=== PATIENT | male | born 1950 | race Caucasian/White ===

== ENCOUNTER 2024-04-24 08:56 | Outpatient (CLI) | payer MEDICARE, SELFPAY ==
--- NOTE | 2024-04-24 10:45 | NEURO_ITS ---
Impression: # Complains of restless leg syndrome. Non-diabetic. # Mild sensorimotor axonal neuropathy. # Normal needle/EMG exam with no neurogenic changes. # Clinical correlation recommended. Nerve Conduction Studies Anti Sensory Summary Table Stim Site NR Peak (ms) P-T Amp (?V) Site1 Site2 Delta-P (ms) Dist (cm) Venkat (m/s) Left Sup Fibular Anti Sensory (Ant Lat Mall) NO RESPONSE 14 cm NR 14 cm Ant Lat Mall 16.0 Right Sup Fibular Anti Sensory (Ant Lat Mall) NO RESPONSE 14 cm NR 14 cm Ant Lat Mall 16.0 Left Sural Anti Sensory (Lat Mall) NO RESPONSE Calf NR Calf Lat Mall 16.0 Right Sural Anti Sensory (Lat Mall) Calf 3.7 16.1 Calf Lat Mall 3.7 16.0 43 Motor Summary Table Stim Site NR Onset (ms) O-P Amp (mV) Site1 Site2 Delta-0 (ms) Dist (cm) Venkat (m/s) Left Peroneal Motor (Vastus Med) Ankle 4.6 5.4 Popit Ankle 10.6 42.0 40 Popit 15.2 4.5 Right Peroneal Motor (Vastus Med) Ankle 4.5 2.2 Popit Ankle 10.7 43.0 40 Popit 15.2 1.7 Left Tibial Motor (Abd Davis Brev) Ankle 4.9 2.2 Knee Ankle 10.4 43.0 41 Knee 15.3 2.0 Right Tibial Motor (Abd Davis Brev) Ankle 4.8 1.7 Knee Ankle 10.1 42.0 42 Knee 14.9 2.0 F Wave Studies NR F-Lat (ms) L-R F-Lat (ms) Left Peroneal (Mrkrs) (EDB) 62.23 1.09 Right Peroneal (Mrkrs) (EDB) 63.32 1.09 Left Tibial (Mrkrs) (Abd Hallucis) 62.51 1.32 Right Tibial (Mrkrs) (Abd Hallucis) 63.83 1.32 EMG Side Muscle Nerve Root Ins Act Fibs Amp Dur Recrt Comment Right AntTibialis Dp Br Fibular L4-5 Nml Nml Nml Nml Nml Right Gastroc Tibial S1-2 Nml Nml Nml Nml Nml Right Fibularis Long Sup Br Fibular L5-S1 Nml Nml Nml Nml Nml Right Flex Dig Long Tibial L5-S2 Nml Nml Nml Nml Nml Right Ext Dig Brev Dp Br Fibular L5, S1 Nml Nml Nml Nml Nml Right QuadratusFem QuadFemoris L4-5, S1 Nml Nml Nml Nml Nml Left AntTibialis Dp Br Fibular L4-5 Nml Nml Nml Nml Nml Left Gastroc Tibial S1-2 Nml Nml Nml Nml Nml Left Fibularis Long Sup Br Fibular L5-S1 Nml Nml Nml Nml Nml Left Flex Dig Long Tibial L5-S2 Nml Nml Nml Nml Nml Left Ext Dig Brev Dp Br Fibular L5, S1 Nml Nml Nml Nml Nml Left QuadratusFem QuadFemoris L4-5, S1 Nml Nml Nml Nml Nml MTDD
== END 2024-04-24 08:57 | disposition home or self-care (01) ==
LOC: ANHNEURO 08:57
PROVIDERS: PCP Family Medicine; Visit Provider Podiatrist Foot & Ankle Surgery
DX: G62.9 Polyneuropathy, unspecified (principal)
CPT/HCPCS: 95886; 95910

== ENCOUNTER 2024-05-22 08:08 | Outpatient (CLI) | payer MEDICARE, SELFPAY ==
[2024-05-22 08:52] LABS: Basophils Absolute Auto 0.1 K/mm3 (0.0-0.1); Basophils Percent Auto 0.8 % (0.2-1.2); Eosinophils Absolute Auto 0.1 K/mm3 (0-0.3); Eosinophils Percent Auto 0.8 % (0-4.4); Hematocrit 41.6 % (42.0-52.0); Hemoglobin 13.5 g/dL (14.0-18.0); Immature Granulocyte Absolute 0.03 K/mm3 (0.00-0.031); Immature Granulocyte Percent A 0.5 % (0-0.5); Lymphocytes Absolute Auto 1.11 K/mm3 (0.9-3.2); Lymphocytes Percent Auto 18.8 % (18.3-44.2); Mean Corpuscular HGB Conc 32.5 g/dl (32-36); Mean Corpuscular Hemoglobin 31.4 pg (26-34); Mean Corpuscular Volume 96.7 fl (80-100); Mean Platelet Volume 9.1 fl (7.4-10.4); Monocytes Absolute Auto 0.3 K/mm3 (0.1-0.6); Monocytes Percent Auto 5.6 % (2.6-8.5); Neutrophils Absolute Auto 4.3 K/mm3 (1.3-6.7); Neutrophils Percent Auto 73.5 % (45.5-73.1); Platelet Count Result 301 k/mm3 (150-375); White Blood Count 5.9 K/mm3 (4.5-10.0)
[2024-05-23 14:44] LABS: Homocysteine 17.3 umol/L (<11.4)
[2024-05-23 22:04] LABS: Red Blood Cell Folate 476 ng/mL RBC (>280)
[2024-05-25 12:13] LABS: Vitamin B6 7.4 ng/mL (2.1-21.7)
[2024-05-26 09:40] LABS: Vitamin B1 10 nmol/L (8-30)
[2024-05-26 15:44] LABS: Vitamin D 1,25 (OH)2 Total 40 pg/mL (18-72); Vitamin D2 1,25 (OH)2 <8 pg/mL; Vitamin D3 1,25 (OH)2 40 pg/mL
[2024-05-26 22:39] LABS: Immunofixation, Serum Normal pattern.
[2024-05-28 07:30] LABS: Methylmalonic Acid 154 nmol/L (69-390)
== END 2024-05-22 08:09 | disposition home or self-care (01) ==
PROVIDERS: PCP Family Medicine; Visit Provider Psychiatry & Neurology Neurology
DX: E55.9 Vitamin D deficiency, unspecified (principal); F80.81 Childhood onset fluency disorder; G62.89 Other specified polyneuropathies
CPT/HCPCS: 36415; 82607; 82652; 82747; 83090; 83921; 84207; 84425; 85025; 86334

== ENCOUNTER 2024-05-24 07:37 | Outpatient (CLI) | payer MEDICARE, SELFPAY ==
[2024-05-24 08:06] LABS: Glucose Fasting 102 mg/dL
[2024-05-24 10:02] LABS: Glucose 1 Hour 168 mg/dL
[2024-05-24 10:35] LABS: Glucose 2 Hour 143 mg/dL
== END 2024-05-24 07:38 | disposition home or self-care (01) ==
PROVIDERS: PCP Family Medicine; Visit Provider Psychiatry & Neurology Neurology
DX: Z13.1 Encounter for screening for diabetes mellitus (principal); F80.81 Childhood onset fluency disorder; G62.89 Other specified polyneuropathies
CPT/HCPCS: 36415; 82951

== ENCOUNTER 2025-02-03 09:27 | Outpatient (CLI) | payer MEDICARE, SELFPAY ==
--- OUTSIDE RECORDS SUMMARY | 2010-05-10 19:00 | XMS_ITS | Continuity of Care Document ---
Author Organization [facility] Address [address] [place] [address] Phone Care Team Providers Care Ship Keeper Name Role Phone [facility] Unavailable Unavail able Logan Borrego Unavailable Unavailable Procedures Procedure Date SV Poly Carb Sph +/- 7.12 To +/- 20 D No Tint Photochromatic, Polycarb 0 Medical Tax SV Poly Carb Sph +/- 7.12 To +/- 20 D No Medical Tax Eye Exam & Treatment Refraction Eye Exam & Treatment Refraction Eye Exam & Treatment Refraction SV Poly Carb Sph +/- 7.12 To +/- 20 D No Tax - Medical SV Poly Carb Sph +/- 7.12 To +/- 20 D Ma Tax - Medical No Charge Glasses Check SV Poly Carb Sph +/- 7.12 To +/- 20 D Oc Tax - Medical SV Poly Carb Sph +/- 7.12 To +/- 20 D Oc Frames Deluxe Tax - Medical Eye Exam & Treatment Refraction Advance Directives Directive Yes / No Effective Date File Name No Information Encounters Encounter Description Practice Location Reason(s) For Visit Diagnoses Date Provider Providers Copied on Encounter [facility], [address] [place] [address] [address], [place], [place], [id number], [place] tel:[phone] [facility] No Information Nov-3 0-201 0 [facility] . [address], [address], [place], [place], [id number], [place]. tel:[phone] Referring Provider: Mary Harper, [facility] [address], [place], [address]. tel:[phone] g Provider: Logan Borrego, [facility], [place], [address]. tel:[phone] [facility], [address] [place] [address] [address], [place], [place], [id number], [place] tel:[phone] [facility] No Information Nov-3 0-201 0 [facility] . [address], [address], [place], [place], [id number], [place]. tel:[phone] Referring Provider: Mary Harper, [facility] [address], [place], [address]. tel:[phone] g Provider: Logan Borrego, [address] [place], [place] [address]ate [facility], [place], [address]. tel:[phone] [facility], [address] [place] [address] [address], [place], [place], [id number], [place] tel:[phone] [facility] No Information 8-201 0 Gila Hernandez. [facility] , [address], [place], [address], [place]. tel:[phone] [facility], [address] [place] [address] [address], [place], [place], [id number], [place] tel:[phone] [facility] No Information Nov 2-200 9 Gila Hernandez. [facility] , [address], [place], [address], [place]. tel:[phone] [facility], [address] [place] [address] [address], [place], [place], [id number], [place] tel:[phone] [facility] No Information Nov-0 6-200 8 Gila Hernandez. [address] [place] [address] Dr, [address], [place], [address], [place]. tel:[phone] [facility], [address] [place] [address] [address], [place], [place], [id number], [place] tel:[phone] [facility] No Information Nov-0 6-200 8 [facility] . [address], [address], [place], [place], [address], [place]. tel:[phone] Referring Provider: Mary Harper, [address] [place] [address] [address], [place], [address]. tel:[phone] g Provider: Logan Borrego, [address] [place] [address], [place], [address]. tel:[phone] [facility], [address] [place] [address] [address], [place], [place], [id number], [place] tel:[phone] [facility] No Information May-0 3-200 8 [facility] . [address], [address], [place], [place], [id number], [place]. tel:[phone] Referring Provider: Mary Harper, [address] [place] [address] [address], [place], [address]. tel:[phone] g Provider: Allyson Ernst, [address] [facility], [place], [address]. tel:[phone] [facility], [address], [place], [place], [id number], [place] tel:[phone] [facility] No Information May-0 1-200 8 Gila Hernandez. [facility] , [address], [place], [address], [place]. tel:[phone] [facility], [address] [place] [address] [address], [place], [place], [id number], tel:[phone] [facility] [place] No Information Oct- 7 [facility] . [address] [place] [address], [address], [id number], . tel:[phone] Referring Provider: Mary Harper, [address] [place], [place] [address]ate [place] [address], [place], [place], [facility]. tel:[phone] g Provider: Logan Borrego, [address] [place] [address], [place], [facility]. tel:[phone] [facility], [address] [place] [address] [address], [place], [place], [id number], tel:[phone] [facility] No Information 7 [facility] . [address], [address], [id number], [place]. tel:[phone] Referring Provider: Mary Harper, [address] [place], [place] [address]ate [place] [address], [place], [address]. tel:[phone] g Provider: Logan Borrego, [address] [place] [address], [place], [facility]. tel:[phone] [facility], [address] [place] [address] [address], [place], [place], [id number], [place] tel:[phone] [facility] No Information 7 Gila Hernandez. [address] [place], [place] [address]ate [place] , [address], [place], [place], [facility], [place]. tel:[phone] Family History Family Member Type Diagnosis Age At Onset No Information Payers Payer name Insurance type Covered democrat ID Authoriza tion(s) No Information Social History Type Description Quantity Date Captured Comments Sex Male Smoking Status No Information Chief Complaint And Reason For Visit No Information Reason For Referral Reason For Referral No Information History Of Present Illness Encounter Date Complaint History Of Prese nt Illness No Information Functional Status Date Functional Assessmen t No Information Instructions Date Instruction Additional Infor mation No Information Assessments Type Assessment Date No Information Patient Care Teams Name Effective Dates (start - stop) Status Members No Information
--- NOTE | ~2025-02-03 | XR_ITS ---
XR knee RT min 4V 02/03/2025 09:57 Indication: Right knee pain Procedure: 4 views right knee Comparison: No prior studies for comparison. Findings: There is mild patellofemoral compartment osteoarthritis. No fracture, subluxation or dislocation. No significant joint effusion. No foreign bodies. Impression: 1: No acute bone or joint abnormality. 2: Mild patellofemoral compartment osteoarthritis. Reviewed, dictated and finalized at location O. Impression: 1: No acute bone or joint abnormality. 2: Mild patellofemoral compartment osteoarthritis.
--- NOTE | ~2025-02-03 | XR_ITS ---
EXAMINATION: XR hip BI 2V w AP pelvis DATE: 02/03/2025 09:57 INDICATION: Pain TECHNIQUE: 5 images of the hips were obtained. COMPARISON: None. FINDINGS: Mild degenerative change in both hips and the pubic symphysis. Bones appear osteopenic. There is bowel gas and stool projecting over the pelvis which limits evaluation. There are a few less than 1.0 cm calcifications projecting over the pelvis which may represent phleboliths, however, a distal ureteral stone or bladder stone or possible. No fracture. No dislocation. Subtle amorphous 1.0 cm lucency in the right lesser trochanter. Differential includes osteopenia or lytic bone lesion. A total body bone scan is recommended. IMPRESSION: 1. Subtle amorphous lucency in the right lesser trochanter. Differential includes osteopenia or lytic bone lesion. A total body bone scan or MRI with and without contrast is recommended. 2. No fracture. No dislocation. 3. Mild degenerative change in the hips. Reviewed, dictated and finalized at location Q. IMPRESSION: 1. Subtle amorphous lucency in the right lesser trochanter. Differential includ es osteopenia or lytic bone lesion. A total body bone scan or MRI with and with out contrast is recommended. 2. No fracture. No dislocation. 3. Mild degenerative change in the hips.
--- OUTSIDE RECORDS SUMMARY | 2025-02-03 10:06 | XMS_ITS | Clinical Summary ---
Author Organization [facility] Address [facility] [place] [address] Care Team Providers Care Citrus Fruit Packer Name Role Phone Unavailable Primary Care Provider Unavailabl e Allergies Active Allergy Reactions Criticality Noted Date Comments Ragweed Medications multivit-min/iron /folic acid/K (ADULTS MULTIVITAMIN ORAL) Take 1 tablet by mouth daily before breakfast Active acetaminophen ER (TYLENOL) 650 mg 8 hr tablet Take 650 mg by mouth every 8 (eight) hours as needed for pain Active Active Problems Problem Noted Date Diagnosed Date Other spondylosis with radiculopathy, 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/2018 Neoplasm of uncertain behavior of skin 3 Prostate nodule 11/03/2010 Elevated prostate specific antigen (PSA) 010 Overview (09/22/2017): Description: PSA=4.3 on 02/27/2010 Resolved Problems Problem Noted Date Diagnosed Date Resolved Date Right inguinal hernia 11/23/20202020 Overview (11/23/2020): Added automatically from request for surgery [id number] Surgical History Surgery Date Site/Laterality Comments HEMORRHOID SURGERY 06/12/1984 - 06/11/1985 ARM SURGERY 06/12/1966 - 06/11/1967 Right tumor removed HERNIA REPAIR 06/12/1999 - 06/11/2000 HERNIA REPAIR 06/12/2007 - 06/11/2008 Left inguinal COLONOSCOPY Medical History Medical History Date Comments Benign neoplasm of bone or a rticular cartilage Benign Neoplasm Of The Bone - 1966 (Added by TW Conv) Inguinal hernia Family History Medical History Relation Name Comments Heart disease Father Anesthesia problems Neg Hx Relation Name Status Comments Father Social History Tobacco Use Types Packs/Day Years Used Date Smoking Tobacco: Never Smokeless Tobacco: Never Alcohol Use Standard Drinks/Week Comments No 0 (1 standard drink = 0.6 oz pur e alcohol) AUDIT-C Answer Date Recorded Q1: How often do you have a drink containing alc ohol? Monthly or less 12/10/2020 Q2: How many drinks containi ng alcohol do you have on a typical day when you are drinking? 1 or 2 12/10/2020 Q3: How often do you have si x or more drinks on one occasion? 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 Gender Identity Not on file Sexual Orientation Not on file Occupation Industry Job Start Date Job End Date retired Not on file Not on file Not on file Obstetrics History Last Filed Vital Signs Vital Sign Reading Time Taken Comments Blood Pressure 156/78 12/28/2020 1:41 PM CDT Pulse 76 12/28/2020 1:41 PM CDT Temperature 36.3 C (97.3 F) 12/28/2020 1:41 PM CDT Respiratory Rate 19 12/10/2020 4:30 PM CDT Oxygen Saturation 97% 12/10/2020 4:20 PM CDT Inhaled Oxygen Concentration - - Weight 70.6 kg (155 lb 9.6 oz) 12/28/2020 1:41 P M CDT Height 175.3 cm (5' 9) 12/28/2020 1:41 PM CDT Body Mass Index 22.98 12/28/2020 1:41 PM CDT Plan of Treatment Not on file Medical Devices Implanted Type Area Stubber Device Identifier Shelf Expiration Date Model / Serial / Lot [employer] Dani Bard [id number] Bard Marlex 6x6in Monofilament Gold Standard Flat Sheet Groin - [id number] Implanted:Qty: 1 on 12/10/2020 by Cindy Hernandez MD at [facility] [employer] Dani [place] [id number] 07/09/2025 [id number] / / [id number] Insurance MEDICARE [facility] MEDICARE [facility] MEDICARE [facility]
== END 2025-02-03 09:28 | disposition home or self-care (01) ==
PROVIDERS: PCP Family Medicine; Visit Provider Student in an Organized Health Care Education/Training Program
DX: R93.89 Abnormal findings on diagnostic imaging of other specified body structures (principal); M17.11 Unilateral primary osteoarthritis, right knee; M16.0 Bilateral primary osteoarthritis of hip
CPT/HCPCS: 73521; 73564

== ENCOUNTER 2025-03-03 08:54 | Outpatient (CLI) | payer MEDICARE, SELFPAY ==
--- NOTE | ~2025-03-03 | NM_ITS ---
EXAMINATION: NM bone scan whole body DATE: 03/03/2025 13:29 INDICATION: Abnormal findings on pelvis radiographs TECHNIQUE: 23.8 mCi Tc-99m HDP was administered intravenously. Delayed whole- body scintigrams were obtained. COMPARISON: Radiographs dated 02/03/2025 FINDINGS: There is mild uptake at what appears to be an old fracture deformity in the proximal right humeral diaphysis. Mild likely degenerative joint centered uptake at the bilateral acromioclavicular joints, at the right patellofemoral articulation and associated with severe right-sided facet osteoarthritis L4-L5 and L5-S1. No other foci of abnormal bone uptake to suggest malignancy/metastatic disease. IMPRESSION: 1. There is mild uptake at what appears to be an old fracture deformity in the proximal right humeral diaphysis. Correlate with clinical history and consider right humerus radiographs for further evaluation. Reviewed, dictated and finalized at location A.
== END 2025-03-03 08:55 | disposition home or self-care (01) ==
PROVIDERS: PCP Family Medicine; Visit Provider Family Medicine
DX: R93.89 Abnormal findings on diagnostic imaging of other specified body structures (principal); M25.559 Pain in unspecified hip; R97.20 Elevated prostate specific antigen [PSA]
CPT/HCPCS: 78306; A9503

== ENCOUNTER 2025-03-27 00:34 | Day surgery (SDC) | payer MEDICARE, SELFPAY ==
[2025-03-19 10:43] VITALS: BMI 19.9
--- NOTE | 2025-03-19 10:52 | PC.NURSE ---
[facility] has started construction of its new state of the art ER which will open Spring 2026. With this, we anticipate parking may be a challenge for some our surgical patients and families. Parking spaces are limited but are available for all Surgical, obstetrics, and ER patients sharing this lot. If you arrive and find you are having a hard time finding a parking space, please note that we understand the challenges, please drive around the hospital and park near Hospital Entrance 1. When you enter this entrance, you can ask a volunteer to direct or take you back to the surgical waiting area to check in. We appreciate everyone?s understanding of these expected challenges while we build for your future. Report to the Outpatient Waiting Room, entrance under the green pavilion located off [address], at time _06:15am on date . Planned Procedure Time: __08:15am .? Time changes happen often and if your time is changed the preop area will call you the afternoon before. - You and your visitor will be asked to self-screen and do not enter if you have any COVID symptoms. Please call surgeon if you need to reschedule. - A mask is optional within the hospital at this time. Patients may have clear liquids (water, carbonated beverages, clear teas, apple juice) until 3 hours prior to surgery with a maximum of 20 ounces. - No food from midnight until time of surgery and no smoking, or chewing tobacco (or any form of nicotine). No chewing gum, candy or mints.(0515am) Take only the following medications with a SIP of water on the morning of surgery: ____Gabapentin and Tylenol DO NOT STOP ANY OF YOUR OTHER PRESCRIPTION MEDICATIONS PRIOR TO SURGERY EXCEPT THE FOLLOWING Hold all vitamins and supplements for 7 days per anesthesiologist. date of last dose is 03/19/25 Medications to discontinue per physician __HOLD ANY ASPIRIN or NSAIDS For 7 days prior Date to take last dose___03/19/25 Please no make-up, nail arabic, hairspray, perfume, deodorant, or body powder the day of surgery.? No jewelry (including any body piercings) or valuables the day of surgery, leave them at home.? Please take a shower or bath the night before, or the morning of, surgery with an antibacterial soap. DIAL SOAP ? Wear comfortable, loose fitting clothing.? FLEETS ENEMA am of as ordered. - Jewelry must be removed prior to entering the operating room.? Rings and piercings that are not removed may be cut off. - The hospital will not accept responsibility for valuables.? - Please leave all valuables, including medications, at home the day of surgery. If you are going home after surgery, a licensed [employer] company flatbed driver must drive you home.? - NO public transportation without another adult if you receive anesthesia. - We recommend that an adult stay with you for 24 hours following discharge. - We also recommend that you do not drive, make important decision, drink alcoholic beverages, or take any drugs that were not prescribed by your health care provider for at least 24 hours after your discharge time. Follow any additional instructions given to you from your surgeon. Telephone instructions given to __Patient and asked if any additional questions and then verbalized understanding. Patient advised to call surgeon office or pre surgery nurse liaison [phone] if any additional questions.
--- NOTE | 2025-03-24 07:24 | PM.HPGS ---
History of Present Illness History of Present Illness Consent: Risks, benefits, and alternatives have been discussed and questions answered. Patient agrees to proceed with procedure. Chief complaint: elevated psa Narrative: Samir Wang is a 74 year old male with elevated PSA: 03/26/25: Care transferred to Dr. Lopez after Dr. Lucas chcf 12/31/24: PSA: 5.0 01/30/25: 4K score: The?probability?of?having?aggressive?prostate?cancer: 4KScore?Range?%?Probability?95%?CI ?<5.0?4.1%?2.1%,??7.9% ?? 5.0?to?<10.0?9.6%?5.8%,?15.5% ? 10.0?to?<20.0?19.7%?14.8%,?25.8% ?? >?or?=??20.0? 49.4%?44.5%,?54.3% ?? >?or?=??20.0?49.4%?44.5%,?54.3% 02/15/25: mpMRI Prostate: - volume 100gm - RUDY #1: PI-RADS 4: Right ant. TZ - RUDY #2: PI-RADS 4: Right PZ at apex Review of Systems Review of Systems: All systems reviewed & are unremarkable except as noted in HPI and below PMFSH Past Medical History Medical History Hip pain, right Bone tumor (benign) s/p excision 1967 Spinal stenosis Restless legs Elevated PSA prostate biopsy 2009 negative Stuttering Hernia Hemorrhoid Arthritis Surgical History Surgical History H/O hernia repair Family History Family History Father Heart disease Mother Alzheimer disease Social History Social History Smoking status: Never smoker Second hand tobacco smoke exposure: No Alcohol intake: never Substance use: never Current Housing: Decline to Answer Concerned About Future Housing: Decline to Answer Difficulty Paying Gas/Electric Bills: Decline to Answer Difficulty Paying for Meds: Decline to Answer Currently Unemployed: Decline to Answer Education: Decline to Answer Difficulty w/ Childcare or Family Care: Decline to Answer Living arrangements: alone Spiritual care concerns: No Meds Home Medications and Allergies Home Medications ?Medication ?Instructions ?Recorded ?Confirmed ?Type silodosin 4 mg capsule (Rapaflo) 4 mg PO DAILY #90 caps 02/21/25 03/19/25 Rx acetaminophen 500 mg capsule 1,000 mg PO BID 03/19/25 03/19/25 History cholecalciferol (vitamin D3) 25 1,000 unit PO DAILY 03/19/25 03/19/25 History mcg (1,000 unit) capsule docusate sodium 100 mg capsule 100 mg PO DAILY 03/19/25 03/19/25 History (Colace) gabapentin 300 mg capsule 300 mg PO Q12H 03/19/25 03/19/25 History pramipexole 0.125 mg tablet 0.125 mg PO QPM 03/19/25 03/19/25 History tamsulosin 0.4 mg capsule 0.4 mg PO .PM 03/19/25 03/19/25 History Allergies Allergy/AdvReac Type Severity Reaction Status Date / Time ragweed pollen Allergy Severe Hives Verified 03/19/25 10:37 Assessment and Plan Assessment and plan (1) Elevated PSA: Code(s): R97.20 - Elevated prostate specific antigen [PSA] Status: Acute Assessment and Plan: Transrectal ultrasound guided fusion biopsy of prostate
[2025-03-27 06:00] VITALS: BP 142/76; PULSE 77; RESP 18; TEMP 36.7; O2SAT 99
[2025-03-27] MEDS: LACTATED RINGERS 1,000 ML 30 ML IV CONT (06:15)
--- NOTE | 2025-03-27 06:24 | WPDHPUPDATE1 ---
History and Physical Update Update Date/Time: 03/27/25 06:24 History and Physical has been reviewed, including an updated exam of the patient. There are NO changes in the patient's condition. Risks, benefits, and alternatives have been discussed and questions answered. Patient agrees to proceed with procedure.
--- NOTE | 2025-03-27 07:21 | WPDANESEPPF ---
Anes - Initial Pre Proc Eval Procedure: Operation Date: 03/27/25 08:15 Proposed Procedures p Transrectal Ultrasound Fusion Guided Prostate Biopsy - Curt Lopez MD Date/Time: 03/27/25 07:21 Surgeon: Curt Lopez MD Pre Op Diagnosis: elevated psa Patient Data Age: 74 Gender: M Height: 1.75 m Weight: 62.7 kg Last Vital Signs Temp 36.7 C 03/27/25 06:00 Pulse 77 03/27/25 06:00 Resp 18 03/27/25 06:00 BP 142/76 H 03/27/25 06:00 Pulse Ox 99 03/27/25 06:00 O2 Del Method Room Air 03/27/25 06:00 Allergies Allergy/AdvReac Type Severity Reaction Status Date / Time ragweed pollen Allergy Severe Hives Verified 03/27/25 06:52 Home Medications ?Medication ?Instructions ?Recorded ?Confirmed ?Type silodosin 4 mg capsule (Rapaflo) 4 mg PO DAILY #90 caps 02/21/25 03/27/25 Rx acetaminophen 500 mg capsule 1,000 mg PO BID 03/19/25 03/27/25 History cholecalciferol (vitamin D3) 25 1,000 unit PO DAILY 03/19/25 03/27/25 History mcg (1,000 unit) capsule docusate sodium 100 mg capsule 100 mg PO DAILY 03/19/25 03/27/25 History (Colace) gabapentin 300 mg capsule 300 mg PO Q12H 03/19/25 03/27/25 History pramipexole 0.125 mg tablet 0.125 mg PO QPM 03/19/25 03/27/25 History Patient hx anesthesia problems: none Family hx anesthesia problems: none Results Review: All pre-operative results and documents have been reviewed as part of the pre-operative evaluation. [facility] Past Medical History Medical History Hip pain, right Bone tumor (benign) s/p excision 1967 Spinal stenosis Restless legs Elevated PSA prostate biopsy 2009 negative Stuttering Hernia Hemorrhoid Arthritis Surgical History Surgical History H/O hernia repair Family History Family History Father Heart disease Mother Alzheimer disease Social History Social History Smoking status: Never smoker Second hand tobacco smoke exposure: No Alcohol intake: never Substance use: never Current Housing: Decline to Answer Concerned About Future Housing: Decline to Answer Difficulty Paying Gas/Electric Bills: Decline to Answer Difficulty Paying for Meds: Decline to Answer Currently Unemployed: Decline to Answer Education: Decline to Answer Difficulty w/ Childcare or Family Care: Decline to Answer Living arrangements: alone Spiritual care concerns: No Anes - Eval Final PreProcedure Day of Procedure 03/27/25 07:21 Patient weight: normal Heart: regular rate and rhythm Lungs: clear to auscultation and normal air movement Airway: Mallampati scale class II Neurological: alert and oriented Last oral intake: >/= 8 hours ASA classification: III Emergent: no Anesthetic plan: proceed Anesthesia type and monitoring: general GIVS and standard monitoring Results Review: All pre-operative results and documents have been reviewed as part of the pre-operative evaluation. Informed Consent: The patient's anesthetic plan and its attendant risks and benefits were discussed with the patient/family/POA. Questions were solicited and answers provided to the satisfaction of the patient/family/POA.
--- NOTE | 2025-03-27 08:16 | S_PTH ---
PATIENT: Samir Wang LOC: [facility] U#:[id number] AGE/SX: 74/M ROOM: RE03/27/[address]: Curt Lopez MD : 1950 BED: DIS: 03/27/2025 SPEC #: [id number] RECD: 03/27/25 10:01 STATUS: MANSOOR RE #: [id number] PATTIE: 03/27/25 08:[address]: Curt Lopez DEPT: [facility] Surgical RECD BY: Jenny Anaya ENTERED: 03/27/25 10:02 SP TYPE: Surgical OTHR DR: Luisa Olea PA-C Tissues: A - Prostate Bx B - Prostate Bx C - Prostate Bx D - Prostate Bx E - Prostate Bx F - Prostate Bx G - Prostate Bx H - Prostate Bx I - Prostate Bx J - Prostate Bx K - Prostate Bx L - Prostate Bx M - Prostate Bx N - Prostate Bx Procedures: Unstained Slides Hematoxylin and Eosin Stain Prostate Biopsy
--- NOTE | 2025-03-27 08:32 | P.OP_ITS ---
Procedure Note - Detailed Date of Procedure 03/27/25 Pre-op Diagnosis Elevated psa Post-op Diagnosis Same Procedure Performed UroNav fusion biopsy prostate Surgeon Curt Lopez MD Anesthesia General Description of Procedure Patient is brought to the operative suite where he is positioned in the left lateral position. Systemic sedation is administered per the anesthesia department. Surgical time-out is undertaken and it's verified the patient has received preoperative antibiotics. Transrectal ultrasonography is undertaken with a standard transrectal probe. The [employer] Odor Resistant Bedding[employer] system is used to superimpose his previously obtained mpMRI prostate images on the real-time transrectal ultrasond images. Prostate volume is calculated at 86cc. On the previous mpMRI there are 2 regions of interest. Using the transrectal needle design for prostate biopsies 3 cores from each region of interest her obtain. We then proceeded with a standard 12 core prostate biopsy. Transrectal probe was removed and patient taken to recovery room having tolerated the procedure well. Blood loss was less than 10 cc.
[2025-03-27 08:36] VITALS: BP 141/75; PULSE 72; RESP 16; O2SAT 100
[2025-03-27 09:00] VITALS: BP 140/88; PULSE 72; RESP 20
[2025-03-27 09:15] VITALS: BP 129/73; PULSE 67; RESP 20
== END 2025-03-27 09:24 | disposition home or self-care (01) ==
PROVIDERS: PCP Student in an Organized Health Care Education/Training Program; Visit Provider Urology
PROC: (CPT 55700; principal; 2025-03-27 08:15)
DX: N41.1 Chronic prostatitis (principal); G25.81 Restless legs syndrome; M19.90 Unspecified osteoarthritis, unspecified site; M48.00 Spinal stenosis, site unspecified; Z98.890 Other specified postprocedural states; Z82.49 Family history of ischemic heart disease and other diseases of the circulatory system
CPT/HCPCS: 76872; 55700; G0416; J2003; J2704; J7120